=== PATIENT | male | born 1990 | race African-American/Black ===

== ENCOUNTER 2017-06-03 11:33 | Emergency (ER) | payer OTHER ==
[~2017-06-03] VITALS: Ht 193 cm; Wt 114.0 kg
[2017-06-03] MEDS ORDERED: ONDANSETRON 4MG ODT PO ONE (12:15)
[2017-06-03] MEDS ORDERED: HYDROCODONE/ACETAMINOPHEN 10/325MG TABLET PO ONE (12:15)
[2017-06-03 12:35] VITALS: BP 135/95
== END 2017-06-03 14:01 | disposition home or self-care (01) ==
LOC: ER 13:54
DX: S62.307A Unspecified fracture of fifth metacarpal bone, left hand, initial encounter for closed fracture (principal); R03.0 Elevated blood-pressure reading, without diagnosis of hypertension; X58.XXXA Exposure to other specified factors, initial encounter; Y93.89 Activity, other specified; Y92.89 Other specified places as the place of occurrence of the external cause; Y99.8 Other external cause status
CPT/HCPCS: 29125; 73130; 99284; Q0162